=== PATIENT | male | born 1970 | race Caucasian/White ===

== ENCOUNTER 2017-03-12 05:07 | Inpatient (IN) | payer MEDICAID ==
[~2017-03-12] VITALS: Ht 185.4 cm; Wt 204.1 kg
[2017-03-12] VITALS (13 sets, daily range): BP systolic 105–158; BP diastolic 55–101
[2017-03-12] MEDS ORDERED: HYDROMORPHONE 1 MG/1 ML DISP.SYRIN IV ONE (05:15)
[2017-03-12] MEDS ORDERED: ONDANSETRON 4 MG/2 ML VIAL IV ONE (05:15)
[2017-03-12] MEDS ORDERED: HYDROMORPHONE 2 MG/1 ML DISP.SYRIN ONE (05:39)
[2017-03-12] MEDS ORDERED: ONDANSETRON 4 MG/2 ML VIAL ONE (05:39)
--- NOTE | 2017-03-12 05:42 | NUR ---
Patient walked into ER c/o scrotal edema, patient is obese and has difficulty ambulating. Patient to room 3A.
[2017-03-12] MEDS ORDERED: IPRATROPIUM BROMIDE 0.5 MG/2.5 ML NEBU NEB ONE (05:45)
[2017-03-12] MEDS ORDERED: ALBUTEROL SULFATE 2.5 MG/3 ML NEBU NEB ONE (05:45)
[2017-03-12] MEDS ORDERED: FUROSEMIDE 20 MG/2 ML VIAL IV ONE (05:45)
[2017-03-12] MEDS ORDERED: ALBUTEROL SULFATE 2.5 MG/3 ML NEBU ONE (05:52)
[2017-03-12] MEDS ORDERED: IPRATROPIUM BROMIDE 0.5 MG/2.5 ML NEBU ONE (05:53)
[2017-03-12] MEDS ORDERED: LEVOFLOXACIN 750 MG/D5W 150 ML PIGGYBACK IV ONE (06:00)
[2017-03-12] MEDS ORDERED: FUROSEMIDE 40 MG/4 ML VIAL ONE (06:01)
[2017-03-12] MEDS ORDERED: VANCOMYCIN IV 1,000 MG in IV DEXTROSE 5% 250 ML IV ONE (06:15)
[2017-03-12] MEDS ORDERED: ENOXAPARIN SODIUM 100 MG/ML DISP.SYRIN SQ ONE ×2 (06:15→06:32)
[2017-03-12 06:17] LABS: ABG BASE EXCESS -2.6 mmol/L; ABG HCO3 26.5 mmol/L; ABG PCO2 65.3 mmHg (35.0-45.0); ABG PH 7.227 (7.350-7.450); ABG PO2 52.7 mmHg (75.0-100.0); ABG SITE LEFT RADIAL; ABG TOTAL HEMOGLOBIN 14.9 G/dL (13.5-18.0); COHb 2.3 % (0.5-1.5); MetHb 0.5 % (0.0-1.5); O2Hb 77.5 % (94.0-97.0); VENT MODE Nasal Cannula
--- NOTE | 2017-03-12 06:20 | NUR ---
Patient observed diapthoretic, pulse tachycardic at 150 bpm, O2 saturations diminished. Patient was moved to critical bed, ERMD notified, respiratory at bedside.
[2017-03-12] MEDS ORDERED: LEVOFLOXACIN 750MG/D5W 150 ML IV ONE (06:32)
[2017-03-12 06:38] LABS: CREATININE 1.1 mg/dL (0.6-1.3); POTASSIUM 4.3 mmol/L (3.5-5.1)
[2017-03-12 06:44] LABS: BILIRUBIN,DIRECT 0.3 mg/dL (0.0-0.2); BILIRUBIN,TOTAL 0.8 mg/dL (0.2-1.0); TOTAL PROTEIN, SERUM 7.4 g/dL (6.4-8.2)
--- NOTE | 2017-03-12 06:45 | NUR ---
Radiology at bedside for US.
[2017-03-12 06:50] LABS: BASOPHILS # (AUTO) 0.1 K/uL (0.0-8.0); BASOPHILS % (AUTO) 1.2 % (0.0-2.0); EOSINOPHILS # (AUTO) 0.1 K/uL (0.0-0.7); EOSINOPHILS % (AUTO) 1.1 % (0.0-7.0); HEMATOCRIT 44.4 % (36.7-47.1); HEMOGLOBIN 14.3 g/dL (12.5-16.3); LYMPHOCYTES # (AUTO) 1.6 K/uL (20.0-40.0); MEAN CORPUSCULAR HEMOGLOBIN 28.3 uug (23.8-33.4); MEAN CORPUSCULAR HGB CONC 32 g/dL (32.5-36.3); MEAN CORPUSCULAR VOLUME 88.1 fL (73.0-96.2); MONOCYTES # (AUTO) 0.6 K/uL (2.0-10.0); MONOCYTES % (AUTO) 7.7 % (0.0-11.0); NEUTROPHILS # (AUTO) 5.4 K/uL (1.8-8.9); PLATELET COUNT (AUTO) 193 K/uL (152-348); RED BLOOD CELL COUNT(AUTO) 5.04 MIL/uL (4.06-5.63); WHITE BLOOD COUNT (AUTO) 7.8 K/uL (3.6-10.2)
[2017-03-12] MEDS ORDERED: methylPREDNISolone SOD SUCC 125 MG/2 ML VIAL IV ONE (07:00)
--- NOTE | 2017-03-12 07:02 | NUR ---
Patient saturation dropped during lower extremity ultrasound, ERMD notified, preparing to intubate.
[2017-03-12] MEDS ORDERED: PROPOFOL 100 ML IV PRN (07:15)
[2017-03-12] MEDS ORDERED: methylPREDNISolone SOD SUCC 125 MG/2 ML VIAL ONE (07:16)
[2017-03-12] MEDS ORDERED: ETOMIDATE 20 MG/10 ML VIAL IV ONE (07:19)
--- NOTE | 2017-03-12 07:27 | NUR ---
Patient noted with significant desaturation @ 0709, ER aware and evaluated patient. @0710 RT [facility] at bedside. Rn Gaurang Jeong, AWAKE OVERNIGHT COUNSELOR Eric Lopez, RN Carlton Shelby , RN Nadine Clifton at bedside for patient assistance during intubation. Time out called @ 0710, all in agreement prior to start of RSI. Patient given Etomidate 20mg via 20ga iv @ 0712. Patient intubated @ [address] Levy. Size 7.5, 23cm @ the lip. Patient placed on Ventilator Settings AC 20 , VT 700, Peep 5, 100% FIO2. Patient currently on monitor and storage bin tender @ NSR. Patient 100% SaO2.
[2017-03-12] MEDS ORDERED: PROPOFOL 100 ML ONE ×2 (07:30→10:21)
--- NOTE | 2017-03-12 07:37 | NUR ---
PT WAS INTUBATED DUE TO RESPIRATORY DISTRESS. PLACED ON AZAR VENT AC 20 VT 700 +5 100%. 7.5 ETT 23 LIPLINE SECURED WITH ET TUBE MAC. ALARMS ARE ON AND AUDIBLE. BVM AT BESIDE. SECRETIONS ARE THIN WHITE BLOOD TINGED.
--- NOTE | 2017-03-12 07:51 | NUR ---
Paged Dr Lam (Urologist) per Md request.
--- NOTE | 2017-03-12 07:51 | NUR ---
RAFAEL FERRO spoke to DR Tsang.
[2017-03-12 08:35] LABS: ABG BASE EXCESS 2.1 mmol/L; ABG PCO2 54.8 mmHg (35.0-45.0); ABG PH 7.342 (7.350-7.450); ABG PO2 87.3 mmHg (75.0-100.0); ABG SITE RIGHT RADIAL; ABG TOTAL HEMOGLOBIN 14.1 G/dL (13.5-18.0); COHb 2.2 % (0.5-1.5); MetHb 0.4 % (0.0-1.5); O2Hb 93.6 % (94.0-97.0); VENT MODE VENT - A/C; VT, ABG 700 mL
[2017-03-12] MEDS ORDERED: MAGNESIUM HYDROXIDE 30 ML LIQUID UDC PO PRN (08:45)
[2017-03-12] MEDS ORDERED: ACETAMINOPHEN 325 MG TABLET PO PRN (08:45)
[2017-03-12] MEDS ORDERED: ONDANSETRON 4 MG/2 ML VIAL IV PRN (08:45)
[2017-03-12] MEDS ORDERED: Z GUARD REMEDY PASTE 57 GM TUBE TOP PRN (08:45)
[2017-03-12] MEDS ORDERED: HYDROCODONE/APAP 5-325MG TABLET PO PRN (08:45)
--- NOTE | 2017-03-12 09:30 | NUR ---
PT IS LAYING IN BED COMFORTABLY. PT IS PROPOFOL DRIP AT 30 MCG. PT IS SEDATED. NO S/S OF RESPIRATORY DISTRESS NOTED. PT IS ON VENT AC 20, TV 700, PEEP 5, 100% fIO2, AT LIP 23, 7.5. PT IS SINUS RHYTHM ON MONITOR. NO PAIN NOTED AT THIS TIME. ALL SAFETY NEEDS ARE MET. IV INTACT PATENT. WILL CONTINUE TO MONITOR.
[2017-03-12] MEDS ORDERED: VANCOMYCIN IV 200 ML ONE (09:42)
[2017-03-12] MEDS: PROPOFOL 100 ML IV PRN ×3 (10:00→21:56)
[2017-03-12] MEDS ORDERED: VANCOMYCIN IV 1 G in PREMIXED 0 EACH IV ONE (11:00)
--- NOTE | 2017-03-12 11:14 | NUR ---
PT WAS TRANSFERED TO CCU ROOM #3. REPORT WAS GIVEN TO CCU RN
--- NOTE | 2017-03-12 11:23 | NUR ---
SUPPORTIVE EMPLOYMENT CASE MANAGER JUST BROUGHT IN IV MEDICATIONS FOR 100 AND 11 O'CLOCK, CALLED ER IF LASIX WAS GIVEN IN ER, PER ANTONIO "IF IT WAS ADMISSION ORDER WE DIDN'T GIVE IT". WILL ADMINISTER MEDICATION. [facility] SUPPLY CALLED IN, THERE'S NO CCU POLLS CALLED IN [facility]ENTR[facility].
[2017-03-12] MEDS: PIPERACILLIN SODIUM/TAZOBACTAM 4.5 G in IV DEXTROSE 5% 50 ML IV SCH ×3 (11:31→23:37)
[2017-03-12] MEDS: FUROSEMIDE 40 MG/4 ML VIAL IV SCH ×2 (11:32→20:33)
--- NOTE | 2017-03-12 12:12 | NUR ---
PER NIXON PT NEEDS PICC LINE, CALLED PICC LINE NURSE LALA, WILL BE THERE AT 1900.
--- NOTE | 2017-03-12 12:17 | NUR ---
TRIED TO CALL A NEXT OF KIN, ON THE FACE SHEET. THE PHONE NUMBER IS THE SAME PHONE NUMBER THE PATIENT'S CELL PHONE. ADVISED NURSING VIRTUAL CLASSROOM MANAGER, PER NURSING VIRTUAL CLASSROOM MANAGER 2 DOCTORS NEED TO SIGN THE ORDER. ADVISED DR. ALICEA. Addendum: 03/12/17 at 2[address] by [address]ANCY SMITH RN DR PIZANO SIGNED THE PICC LINE CONSENT, DR ALICEA SAID THAT HE IS NOT ABLE TO SIGN DUE NOT PHYSICALLY PRSENT AT THE HOSPITAL. DR. ALICEA ASKED TO FAX OVER THE CONSENT , SO HE CAN SIGN THE CONSENT. CALLED NURSING VIRTUAL CLASSROOM MANAGER, OK PER NURSING VIRTUAL CLASSROOM MANAGER FOR DR. ALICEA TO SIGN THROUGH THE FAX. CONSENT IS IN THE CHART.
[2017-03-12] MEDS ORDERED: HEPARIN SODIUM,PORCINE 5,000 UNITS/ML VIAL IV ONE (13:21)
[2017-03-12] MEDS: HEPARIN/D5W DRIP 500 ML IV PRN (13:48)
--- NOTE | 2017-03-12 14:00 | NUR ---
PER DR GONZALEZ, PUT ORDER FOR CT ABDOMEN Addendum: 03/12/17 at 1547 by NANCY SMITH RN DR GONZALEZ CAME TO ASSESS THE PT, PT FULL REPORT GIVEN
--- NOTE | 2017-03-12 14:11 | NUR ---
Clinical Pharmacy Note: Vancomycin Pharmacy to dose subjective: To start vancomycin in this 46 y/o gentleman for indication of sepsis unknown source. Patient is morbidly obese, also on zosyn Objective: height 185cm weight 204kg (450lbs) BUN 17 Scr 1.1 Wbc 7.8 temp 98.6 1gm in ER 03/12 @ 0800. Supplemental 1gm scheduled at 1100 Assessment/Plan Will start vancomycin 2500mg q 9hrs for estimated trough of 16.42, first dose due at 2000 tonight. Ordered trough before 4th scheduled dose (due tomorrow 03/13 @ 2230). Will check renal function tomorrow as well and adjust if were to be unstable. Will continue to follow
[2017-03-12] MEDS ORDERED: HEPARIN SODIUM,PORCINE 5,000 UNITS/ML VIAL IV PRN ×2 (14:15)
[2017-03-12] MEDS ORDERED: ETOMIDATE 20 MG/10 ML VIAL MC ONE (15:17)
[2017-03-12] MEDS ORDERED: SUCCINYLCHOLINE CHLORIDE 200 MG/10 ML VIAL MC ONE (15:17)
[2017-03-12] MEDS: PANTOPRAZOLE SODIUM 40 MG VIAL IV SCH (15:33)
--- NOTE | 2017-03-12 16:30 | NUR ---
CHECK URINE AMOUNT IN BLADDER SCANNER. BLADDER SCANNER SHOWS 20 ML OF URINE. ORDER PER DR GONZALEZ. [employer] TECH WAS CALLED EARLIER IN REGARDS OF STAT ORDER . AWAITING.
--- NOTE | 2017-03-12 16:46 | NUR ---
PT EXPERIENCES PAIN, PER DR ALICEA DILKAMILLAID 2MG IV Q4HR PRN FOR PAIN
[2017-03-12] MEDS: HYDROMORPHONE 2 MG/1 ML DISP.SYRIN IV PRN (17:17)
--- NOTE | 2017-03-12 17:59 | NUR ---
CALLED IN PICC LINE NURSE, CANNOT COME ANY EARLIER THAN 7PM. PER ER NURSE, ER DOCTORS CANNOT PUT PICC LINE, ONLY CENTRAL LINES. WILL PAGE DR. ALICEA.
--- NOTE | 2017-03-12 18:45 | NUR ---
DR. GONZALZE IS AWARE THAT THE PT IS UNABLE TO HAVE CT, DUE TO THE FACT THAT HE IS 450 LB AND WON'T BE ABLE TO FIT TO CT. CANCEL THE CT PER DR GONZALEZ. DR. GONZALEZ ASSESSED THE PT AND PERFORMED PELVIC EXAM.
--- NOTE | 2017-03-12 19:05 | NUR ---
Pt is on Wright settings AC 20, VT 700, PEEP+5 and FIO2-70%. 7.5 ETT is at 23cm at the lip. BVM is at bedside, Pt to be monitored throughout the shift. Wright alarm parameters have been checked and remain audible at this time.
--- NOTE | 2017-03-12 20:00 | NUR ---
Report received from out going nurse Morillo, A RN at about 1900. Pt supine in bed, appeared slightly sedated, open eyes to voice and light stimulation, follows simple command, denied any pain or discomfort at the moment. Assessment completed, see flowsheet for detail. PICC line nurse at bedside for PICC insertion. Dr Ferrari came to see pt, ordered not to insert castellon for now. Continue to monitor pt.
[2017-03-12] MEDS: VANCOMYCIN IV 2,500 MG in IV DEXTROSE 5% 500 ML IV SCH (20:33)
--- NOTE | 2017-03-12 22:03 | NUR ---
PT IS LAYING IN BED COMFORTABLY. PICC LINE NURSE IS TRYING TO PUT PICC LINE . PT IS SEDATED. NO S/S OF RESPIRATORY DISTRESS NOTED. PT IS ON VENT AC 20, TV 700, PEEP 5, 100% fIO2, AT LIP 23, 7.5. PT IS SINUS RHYTHM ON MONITOR. NO PAIN NOTED AT THIS TIME. ALL SAFETY NEEDS ARE MET. Addendum: 03/12/17 at 220 by NANCY SMITH RN THE OCCURRENCE IS AT 1914
[2017-03-13] VITALS (24 sets, daily range): BP systolic 95–149; BP diastolic 52–93
[2017-03-13] MEDS: HEPARIN/D5W DRIP 500 ML IV PRN ×2 (04:07→18:45)
[2017-03-13] MEDS: VANCOMYCIN IV 2,500 MG in IV DEXTROSE 5% 500 ML IV SCH ×2 (04:35→17:18)
[2017-03-13 05:02] LABS: BASOPHILS # (AUTO) 0.2 K/uL (0.0-8.0); BASOPHILS % (AUTO) 1.7 % (0.0-2.0); EOSINOPHILS % (AUTO) 0.1 % (0.0-7.0); HEMATOCRIT 40.8 % (40-50); HEMOGLOBIN 13.2 G/DL (14.0-18.0); LYMPHOCYTES # (AUTO) 1.2 K/UL (0.8-4.8); MEAN CORPUSCULAR HEMOGLOBIN 27.7 UUG (27.0-31.0); MEAN CORPUSCULAR HGB CONC 32 g/dL (32.0-37.0); MEAN CORPUSCULAR VOLUME 85.6 FL (82.0-92.0); MONOCYTES # (AUTO) 0.7 K/UL (0.1-1.30); MONOCYTES % (AUTO) 7.2 % (0.0-11.0); NEUTROPHILS # (AUTO) 7.2 K/UL (1.8-8.9); PLATELET COUNT (AUTO) 241 K/UL (150-450); RED BLOOD CELL COUNT(AUTO) 4.77 MIL/UL (4.7-6.1); WHITE BLOOD COUNT (AUTO) 9.3 K/UL (4.0-11.2)
[2017-03-13 05:15] LABS: CREATININE 1.4 mg/dL (0.6-1.3); MAGNESIUM 1.7 mg/dL (1.8-2.4); PHOSPHOROUS 3.8 mg/dL (2.5-4.9); POTASSIUM 4.7 mmol/L (3.5-5.1)
[2017-03-13] MEDS: PIPERACILLIN SODIUM/TAZOBACTAM 4.5 G in IV DEXTROSE 5% 50 ML IV SCH ×3 (05:43→17:10)
--- NOTE | 2017-03-13 05:49 | NUR ---
Pt remains on Wright at this time. No changes made to the ventilator settings. Pt appeared to have tolerated ventilator settings well. 7.[address] patent and secure at approx. 23cm at the lip. Wright alarm parameters have been checked and remain audible.
[2017-03-13] MEDS: PROPOFOL 100 ML IV PRN ×4 (06:13→20:12)
[2017-03-13 07:13] LABS: ABG BASE EXCESS 5.2 mmol/L; ABG HCO3 29.2 mmol/L; ABG PCO2 40.7 mmHg (35.0-45.0); ABG PH 7.474 (7.350-7.450); ABG PO2 123.7 mmHg (75.0-100.0); ABG SITE LEFT RADIAL; COHb 1.3 % (0.5-1.5); MetHb 0.3 % (0.0-1.5); O2Hb 97.1 % (94.0-97.0); VENT MODE VENT - A/C; VT, ABG 700 mL
[2017-03-13] MEDS: PANTOPRAZOLE SODIUM 40 MG VIAL IV SCH (09:17)
[2017-03-13] MEDS: FUROSEMIDE 40 MG/4 ML VIAL IV SCH (09:17)
--- NOTE | 2017-03-13 09:34 | NUR ---
PT RECEIVED ORALLY INTUBATED WITH 7.5 ETT 23CM AT THE LIP ON AZAR VENT WITH SETTINGS OF A/C 20, VT 700, PEEP +5, 70% FIO2. ETT IS SECURE WITH ANCHOR-FAST AND PT HAS GOOD SKIN INTEGRITY. VENT ALARMS ARE ON AND AUDIBLE. POST ABG, FIO2 TITRATED TO 60%, RN ROLAND WAS NOTIFIED AND AWARE. ORAL CARE DONE AND ETT TUBE WAS MOVED TO THE MIDDLE. PT IS SHOWING NO SIGNS OF RESPIRATORY DISTRESS AT THE MOMENT. WILL CONTINUE TO MONITOR.
--- NOTE | 2017-03-13 13:53 | NUR ---
VENT RATE CHANGED TO 16 PER MD. TATUM WATKINS WAS NOTIFIED AND AWARE.
--- NOTE | 2017-03-13 13:59 | NUR ---
WOUND CARE CONSULT: VERY DIFFICULT ASSESSMENT DUE TO MORBID OBESITY OF PT AND INTUBATED STATUS. PT NOTED TO HAVE REDNESS AND EDEMA TO SCROTUM, ABDOMEN AND LOWER EXTREMITIES, PRESENT ON ADMISSION. DEFER TO MD. PT NOTED TO HAVE INVERTED PENIS. PT IS INCONTINENT. SKIN FOLDS MOIST. Z GUARD IN USE. PT ON BARIMAX BED WITH ETS AIR. SKIN TO BE KEPT CLEAN AND DRY. PT TO BE TURNED AND REPOSITIONED EVERY 2 HRS PT CONDITION PERMITS, HEELS FLOATED. ALL SKIN PROTECTION MEASURES IN PLACE AND DISCUSSED WITH NURSING STAFF. WILL SEE PRN. MD IN AGREEMENT WITH PLAN OF CARE. Addendum: 03/13/17 at 1404 by NATHEN GARCIA RN Amended: Links added.
[2017-03-13] MEDS: MAGNESIUM SULFATE/D5W 100 ML IV SCH ×2 (14:55→16:00)
--- NOTE | 2017-03-13 16:26 | NUR ---
Clinical Pharmacy Note: Vancomycin Pharmacy to dose subjective: To continue vancomycin in this 46 y/o gentleman for indication of sepsis (scrotal cellulitis/possible PNA) Patient is morbidly obese, also on zosyn Objective: height 185cm weight 204kg (450lbs) BUN 19 Scr 1.4 Wbc 9.3 temp 98.6 Assessment/Plan Will change vancomycin 2500mg q 9hrs to every 12hrs due to increased scr (second dose today at 1700) and draw trough by 4th dose(not ordered yet) for expected trough around 15. Will monitor daily.
--- NOTE | 2017-03-13 19:50 | NUR ---
PT RECEIVED ON AZAR VENT WITH SETTINGS OF AC 16, VT 700, PEEP +5, 60% FIO2. NO CHANGES MADE AT THIS TIME. PT APPEARS TO BE TOLERATING VENT WELL. PT IS ORALLY INTUBATED WITH A 7.5 ETT APPROX. 23CM AT THE LIP. ETT IS PATENT AND SECURED WITH ANCHOR FAST. ETT WILL BE MOVED ACCORDINGLY THROUGHOUT SHIFT. VENT CHECK DONE. VENT ALARMS ARE ON AND AUDIBLE. ORAL CARE DONE. HME CHANGED. SUCTIONED MODERATE AMOUNT OF THICK, BROWN/PALE SECRETIONS. NO S/S OF RESPIRATORY DISTRESS AT THIS TIME. AMBU BAG IS AT BEDSIDE. VENT IS PLUGGED INTO RED EMERGENCY OUTLET. WILL CONTINUE TO MONITOR.
--- NOTE | 2017-03-13 20:00 | NUR ---
Assessment completed, no changes noted in physical, neurological, cardiac and respiratory assessment, tolerating vent settings well and maintaining adequate saturation, afebrile, VSS, continue to monitor.
[2017-03-13] MEDS: HYDROMORPHONE 2 MG/1 ML DISP.SYRIN IV PRN (23:03)
[2017-03-14] VITALS (24 sets, daily range): BP systolic 87–128; BP diastolic 48–80
[2017-03-14] MEDS: PIPERACILLIN SODIUM/TAZOBACTAM 4.5 G in IV DEXTROSE 5% 50 ML IV SCH ×5 (00:44→23:30)
[2017-03-14] MEDS: PROPOFOL 100 ML IV PRN ×3 (00:52→16:12)
--- NOTE | 2017-03-14 03:33 | NUR ---
BP stable Addendum: 03/14/17 at 0338 by MICHELLE GRAHAM RN Amended: Links added.
--- NOTE | 2017-03-14 03:37 | NUR ---
Saturation adequate Addendum: 03/14/17 at 0337 by MICHELLE GRAHAM RN Amended: Laurie alva. Addendum: 03/14/17 at 0338 by MICHELLE GRAHAM RN Amended: Laurie alva.
[2017-03-14 04:54] LABS: BASOPHILS # (AUTO) 0.1 K/uL (0.0-8.0); BASOPHILS % (AUTO) 0.9 % (0.0-2.0); EOSINOPHILS # (AUTO) 0.1 K/uL (0.0-0.7); EOSINOPHILS % (AUTO) 1.2 % (0.0-7.0); HEMATOCRIT 38.9 % (40-50); HEMOGLOBIN 12.5 G/DL (14.0-18.0); LYMPHOCYTES # (AUTO) 2.1 K/UL (0.8-4.8); LYMPHOCYTES % (AUTO) 27.7 % (20.5-51.5); MEAN CORPUSCULAR HEMOGLOBIN 27.9 UUG (27.0-31.0); MEAN CORPUSCULAR HGB CONC 32 g/dL (32.0-37.0); MEAN CORPUSCULAR VOLUME 86.7 FL (82.0-92.0); MONOCYTES # (AUTO) 0.6 K/UL (0.1-1.30); MONOCYTES % (AUTO) 7.9 % (0.0-11.0); NEUTROPHILS # (AUTO) 4.5 K/UL (1.8-8.9); NEUTROPHILS % (AUTO) 62.3 % (38.5-71.5); PLATELET COUNT (AUTO) 208 K/UL (150-450); RED BLOOD CELL COUNT(AUTO) 4.49 MIL/UL (4.7-6.1); WHITE BLOOD COUNT (AUTO) 7.4 K/UL (4.0-11.2)
[2017-03-14 05:14] LABS: CREATININE 1.7 mg/dL (0.6-1.3); MAGNESIUM 1.9 mg/dL (1.8-2.4); PHOSPHOROUS 4.4 mg/dL (2.5-4.9); POTASSIUM 3.8 mmol/L (3.5-5.1)
[2017-03-14] MEDS: VANCOMYCIN IV 2,500 MG in IV DEXTROSE 5% 500 ML IV SCH (05:33)
[2017-03-14] MEDS: HYDROMORPHONE 2 MG/1 ML DISP.SYRIN IV PRN (06:47)
--- NOTE | 2017-03-14 07:20 | NUR ---
Pt received in bariatric bed, semi-Christianson's, awake and alert, answers with head nods and follows directions.. Orally intubated, ETT 7.5, approx 23 at lip, moved to right side of mouth, no breakdown noted.. Continuous mechanical ventilation: vent Wright, with settings: A/C 16, Vt 700, PEEP +5, FiO2 50%.. Vent alarms documented as received.. will continue to monitor..
[2017-03-14] MEDS: FUROSEMIDE 40 MG/4 ML VIAL IV SCH (08:17)
[2017-03-14] MEDS: PANTOPRAZOLE SODIUM 40 MG VIAL IV SCH (08:17)
[2017-03-14 08:31] LABS: ABG BASE EXCESS 3.2 mmol/L; ABG HCO3 27.5 mmol/L; ABG PCO2 40.8 mmHg (35.0-45.0); ABG PH 7.447 (7.350-7.450); ABG SITE LEFT RADIAL; ABG TOTAL HEMOGLOBIN 13.3 G/dL (13.5-18.0); COHb 1.5 % (0.5-1.5); MetHb 0.3 % (0.0-1.5); O2Hb 94.7 % (94.0-97.0); VENT MODE VENT - A/C; VT, ABG 700 mL
[2017-03-14] MEDS: HEPARIN/D5W DRIP 500 ML IV PRN ×2 (08:49→21:57)
--- NOTE | 2017-03-14 09:50 | NUR ---
Lowered FiO2 to 40%..
--- NOTE | 2017-03-14 11:20 | NUR ---
Lowered FiO2 to 35%..
--- NOTE | 2017-03-14 13:43 | NUR ---
Clinical Pharmacy Note: Vancomycin Pharmacy to dose subjective: To continue vancomycin in this 46 y/o gentleman for indication of sepsis (scrotal cellulitis/possible PNA) Patient is morbidly obese, also on zosyn Objective: height 185cm weight 204kg (450lbs) BUN 20 Scr 1.7 Wbc7.4 temp 97.8 Assessment/Plan Due to increased Scr, will stop scheduled 2500mg q 9hrs to every 12hrs. Last dose was given today am at around 6am. Random level ordered tomorrow am with labs. Will check level and dose per level as needed. Will follow
[2017-03-14] MEDS: HYDROMORPHONE 4 MG/1 ML DISP.SYRIN IV PRN ×2 (14:58→22:11)
--- NOTE | 2017-03-14 19:28 | NUR ---
Receive pt orally intubated with 7.5 ETT~24cm at lip line, on Wright vent with the following settings of AC-16, Vt-700, PEEP+5, FIO2-35%. No respiratory distress noted. Pt responded to verbal communication. Airway care done, pt responded to physical stimuli. ETT moved to the right. Resus. bag at bedside. Vent and alarms checked and reset.
--- NOTE | 2017-03-14 21:19 | NUR ---
Tolerating vent settings well, FIO2 down to 35%, Saturation 95-100 Addendum: 03/14/17 at 2119 by MICHELLE GRAHAM RN Amended: Links added. Addendum: 03/14/17 at 2124 by MICHELLE GRAHAM RN Amended: Links added.
--- NOTE | 2017-03-14 21:24 | NUR ---
No further compromise of skin integrity noted, air matteress rotation maintained,extremities elevated on pillows Addendum: 03/14/17 at 2124 by MICHELLE GRAHAM RN Amended: Links added.
[2017-03-15] VITALS (24 sets, daily range): BP systolic 89–143; BP diastolic 53–91
[2017-03-15] MEDS: PROPOFOL 100 ML IV PRN ×2 (00:25→07:56)
--- NOTE | 2017-03-15 01:53 | NUR ---
Maintains a patent airway,VS WNL,Maintains optimal breath sounds Addendum: 03/15/17 at 0154 by MICHELLE GRAHAM RN Amended: Links added.
--- NOTE | 2017-03-15 02:05 | NUR ---
Adequate VS maintained Addendum: 03/15/17 at 0205 by MICHELLE GRAHAM RN Amended: Laurie alva. Addendum: 03/15/17 at 0208 by MICHELLE GRAHAM RN Amended: Laurie alva. Addendum: 03/15/17 at 0212 by MICHELLE GRAHAM RN Amended: Links added. Addendum: 03/15/17 at 0216 by MICHELLE GRAHAM RN Amended: Links added. Addendum: 03/15/17 at 0216 by MICHELLE GRAHAM RN Amended: Links added.
--- NOTE | 2017-03-15 02:08 | NUR ---
No change in appearance of cellulitis, WBC remain WNL Addendum: 03/15/17 at 0208 by MICHELLE GRAHAM RN Amended: Laurie added. Addendum: 03/15/17 at 0212 by MICHELLE GRAHAM RN Amended: Laurie added. Addendum: 03/15/17 at 0216 by MICHELLE GRAHAM RN Amended: Links added. Addendum: 03/15/17 at 0216 by MICHELLE GRAHAM RN Amended: Links added.
[2017-03-15] MEDS: HYDROMORPHONE 4 MG/1 ML DISP.SYRIN IV PRN ×4 (04:47→20:40)
[2017-03-15 04:55] LABS: BASOPHILS % (AUTO) 0.8 % (0.0-2.0); EOSINOPHILS # (AUTO) 0.1 K/uL (0.0-0.7); EOSINOPHILS % (AUTO) 2.4 % (0.0-7.0); HEMATOCRIT 39.5 % (40-50); HEMOGLOBIN 12.8 G/DL (14.0-18.0); LYMPHOCYTES # (AUTO) 1.6 K/UL (0.8-4.8); LYMPHOCYTES % (AUTO) 30.1 % (20.5-51.5); MEAN CORPUSCULAR HGB CONC 33 g/dL (32.0-37.0); MONOCYTES # (AUTO) 0.5 K/UL (0.1-1.30); MONOCYTES % (AUTO) 8.6 % (0.0-11.0); NEUTROPHILS # (AUTO) 3.2 K/UL (1.8-8.9); NEUTROPHILS % (AUTO) 58.1 % (38.5-71.5); PLATELET COUNT (AUTO) 229 K/UL (150-450); RED BLOOD CELL COUNT(AUTO) 4.59 MIL/UL (4.7-6.1); WHITE BLOOD COUNT (AUTO) 5.4 K/UL (4.0-11.2)
[2017-03-15 05:10] LABS: CREATININE 1.5 mg/dL (0.6-1.3); MAGNESIUM 1.9 mg/dL (1.8-2.4); PHOSPHOROUS 5.1 mg/dL (2.5-4.9); POTASSIUM 3.6 mmol/L (3.5-5.1)
[2017-03-15] MEDS: PIPERACILLIN SODIUM/TAZOBACTAM 4.5 G in IV DEXTROSE 5% 50 ML IV SCH ×4 (05:47→23:39)
--- NOTE | 2017-03-15 07:40 | NUR ---
RECEIVED PT ON CONTINUOUS VENT AC 16 VT 700 PEEP 5 FIO2 35% . PT AWAKE AND ALERT. NO SIGN OF RESPIRATORY DISTRESS NOTED, SUCTION PRN.ORAL CARE DONE. VENT CHECKED, ALARMS WORKING WELL AND AUDIBLE. NO VENT CHANGES MADE AT THIS TIME. WILL CONTINUE TO MONITOR.
[2017-03-15] MEDS: MAGNESIUM SULFATE/D5W 100 ML IV SCH ×2 (08:08→09:26)
[2017-03-15] MEDS: PANTOPRAZOLE SODIUM 40 MG VIAL IV SCH (08:08)
[2017-03-15] MEDS: FUROSEMIDE 40 MG/4 ML VIAL IV SCH (08:08)
[2017-03-15] MEDS: MUPIROCIN 2% OINT 22 GM TUBE NS SCH ×2 (08:26→21:38)
[2017-03-15 08:51] LABS: ABG BASE EXCESS 5.5 mmol/L; ABG PCO2 43.3 mmHg (35.0-45.0); ABG PH 7.459 (7.350-7.450); ABG SITE RIGHT RADIAL; COHb 1.8 % (0.5-1.5); MetHb 0.4 % (0.0-1.5); VENT MODE VENT - A/C; VT, ABG 700 mL
[2017-03-15] MEDS: HEPARIN/D5W DRIP 500 ML IV PRN (10:57)
--- NOTE | 2017-03-15 12:35 | NUR ---
Clinical Pharmacy Note: Vancomycin Pharmacy to dose subjective: To continue vancomycin in this 46 y/o gentleman for indication of sepsis (scrotal cellulitis/possible PNA) Patient is morbidly obese Objective: height 185cm weight 204kg (450lbs) BUN 18 Scr 1.5 Wbc5.4 temp 97.9 Vanco random level: 39.2 (with am labs) Assessment/Plan Since vanco random level is supra-therapeutic, no dose shall be given today. Will continue to dose by fall off level due to decreased renal function. Plan to check vanco random level with am labs tomorrow. Pharmacy shall review the level in am for further dosing. Will follow
--- NOTE | 2017-03-15 12:40 | NUR ---
PLACED PT ON CPAP 5 PS 10 FIO2 35% PER DR. LEZAMA. PT TOLERATING CURRENT SETTINGS AT THIS TIME. WILL CONTINUE TO MONITOR. ABG IN [address] Sanjuana LEZAMA AT BEDSIDE.
[2017-03-15 14:44] LABS: ABG HCO3 29.1 mmol/L; ABG PCO2 55.5 mmHg (35.0-45.0); ABG PH 7.338 (7.350-7.450); ABG SITE RIGHT BRACHIAL; ABG TOTAL HEMOGLOBIN 14.6 G/dL (13.5-18.0); COHb 1.7 % (0.5-1.5); MetHb 0.3 % (0.0-1.5); O2Hb 91.8 % (94.0-97.0); VENT MODE VENT - CPAP
--- NOTE | 2017-03-15 15:05 | NUR ---
PT AWAKE AND ALERT, EXPLAINED EXTUBATION PROCEDURE AND PT NODS HEAD AND GAVE ME A THUMBS UP. PT EXTUBATED AND PLACED ON NC 3LPM TO KEEP SPO2 92% AND ABOVE. SPO2 93%. ENCOURAGED PT TO TAKE DEEPER BREATHS. NO COMPLICATIONS NOTED. VENT ON STAND BY.
--- NOTE | 2017-03-15 20:00 | NUR ---
Appeared sleeping in bed,supine, dozing off intermittently, apnea lasting about 10-15sec noted, initial shift assessment completed, Advised and encouraged on using Bipap as ordered. Refused.
--- NOTE | 2017-03-15 20:50 | NUR ---
PATIENT IS AWAKE AND ALERT. PLACED PATIENT ON BIPAP PER MD ORDERS WITH THE FOLLOWING SETTINGS: 18/8, RATE OF 12. MD ORDERS SAYS TO KEEP SPO2 ABOVE 92%. FIO2 IS SET AT 80%, PATIENTS SPO2 READING IS AT 95%. MEPILEX IS PLACED AROUND MASK TO KEEP FACE FROM GETTING IRRITATED. TATUM MARTINEZ IS AWARE. NO SOB NOTED AT THIS TIME. WILL CONTINUE TO MONITOR.
--- NOTE | 2017-03-15 21:50 | NUR ---
Dr Barber notified of pt's situation, refusing Bipap, refusing any scheduled care and treatment by staff stating "I want to go home, I need to get out of here". Noncompliant and uncooperative.
--- NOTE | 2017-03-15 22:30 | NUR ---
Tolerated Bipap for about an hour, took it off stating he don't want it anymore. Appeared drowsy, intermittent sleep with apnea. Placed on simple mask @ 8L, takes it on and off, not maintaining adequate O2 saturation, non-cooperative, refused vital signs and any treatment plans.
--- NOTE | 2017-03-16 01:06 | NUR ---
Pt signed AMA. Alert and coherent. Called his room mate (Matt Marte)who was present when pt signed AMA. Dr Franklin who is iron plastic bullet maker for [employer] notified.
--- NOTE | 2017-03-16 01:15 | NUR ---
Pt's belongings and Money given back to him, counted the money, agreed and signed confirming he received it.
--- NOTE | 2017-03-16 01:20 | NUR ---
Pt left unit per W/C in company of staff X 2 and his room mate. Adviced on using his oxygen at home and to call 911 if having any medical problem. Verbalized understanding
== END 2017-03-16 01:20 | disposition left against medical advice (07) | DRG 133 ==
LOC: ER 05:11 → CCU 10:36
PROVIDERS: ADMIT Internal Medicine; ATTEND Internal Medicine
PROC: 5A1945Z Respiratory Ventilation, 24-96 Consecutive Hours (ICD-10-PCS; principal; 2017-03-12)
PROC: 0BH17EZ Insertion of Endotracheal Airway into Trachea, Via Natural or Artificial Opening (ICD-10-PCS; principal; 2017-03-12)
PROC: 02HV33Z Insertion of Infusion Device into Superior Vena Cava, Percutaneous Approach (ICD-10-PCS; principal; 2017-03-12)
DX: J96.21 Acute and chronic respiratory failure with hypoxia (principal); I21.A1 Myocardial infarction type 2; G92 Toxic encephalopathy; E43 Unspecified severe protein-calorie malnutrition; I50.43 Acute on chronic combined systolic (congestive) and diastolic (congestive) heart failure; J18.9 Pneumonia, unspecified organism; J44.0 Chronic obstructive pulmonary disease with (acute) lower respiratory infection; I11.0 Hypertensive heart disease with heart failure; E87.2 Acidosis; J96.22 Acute and chronic respiratory failure with hypercapnia; I27.20 Pulmonary hypertension, unspecified; N49.2 Inflammatory disorders of scrotum; L03.115 Cellulitis of right lower limb; E66.2 Morbid (severe) obesity with alveolar hypoventilation; L03.116 Cellulitis of left lower limb; Z68.43 Body mass index [BMI] 50.0-59.9, adult; E88.09 Other disorders of plasma-protein metabolism, not elsewhere classified; Z71.3 Dietary counseling and surveillance; Z22.322 Carrier or suspected carrier of Methicillin resistant Staphylococcus aureus; N44.00 Torsion of testis, unspecified; Z87.891 Personal history of nicotine dependence; K21.9 Gastro-esophageal reflux disease without esophagitis
CPT/HCPCS: 36415; 36600; 51798; 70030-TC; 71010; 76870; 83735; 84100; 85025; 85730; 87040; 93005; 93307; 94002; 94003; 94660; A4663; C9113; J0330; J1170; J1644; J1650; J1940; J1956; J2405; J2543; J2930; J3370; J3475; J3490; J3590; J7030; J7050; J7060